=== PATIENT | female | born 1940 | race Caucasian/White ===

== ENCOUNTER 2016-09-20 12:42 | Emergency (ER) | payer MEDICARE ==
[2016-09-20 13:23] VITALS: BP 145/63
--- NOTE | 2016-09-20 15:06 | UC ---
Skin Complaint HPI - HPI Summary HPI Summary: ITCHY BUMPS SPREADING ON BOTH LEGS AND NOW SPREADING TO RIGHT HAND AND WRIST OVER LAST THREE DAYS. NO TICK BITES. NO NEW EXPOSURE TO DETERGENTS OR HOUSEHOLD PRODUCTS. NO FEVER. NO WEAKNESS. NO LYMPHNODE ENLARGEMENT OR WEIGHT LOSS. - History of Current Complaint Chief Complaint: UCSkin Time Seen by Provider: 09/20/16 14:02 Stated Complaint: SKIN COMPLAINT Hx Obtained From: Patient Hx Last Menstrual Period: n/a Onset/Duration: Gradual Onset, Lasting Days, Still Present Skin Exposure Onset/Duration: Days Ago Onset Severity: Mild Current Severity: Mild Pain Intensity: 0 Pain Scale Used: 0-10 Numeric Location: Diffuse Character: Pruritus, Redness, Raised Aggravating: Nothing Alleviating: Nothing Associated Signs & Symptoms: Positive: Rash. Negative: Fever, Chills, Drainage , Tenderness, Red Streaks Related History: Possible Reaction to: Insect - Allergy/Home Medications Allergies/Adverse Reactions: Allergies Allergy/AdvReac Type Severity Reaction Status Date / Time environmental Allergy Eyes Uncoded 09/20/16 13:23 Itchy/Swollen/Red/Watery Review of Systems Constitutional: Negative Skin: Rash Eyes: Negative ENT: Negative Respiratory: Negative Cardiovascular: Negative Gastrointestinal: Negative Genitourinary: Negative Motor: Negative Neurovascular: Negative Musculoskeletal: Negative Neurological: Negative Psychological: Negative All Other Systems Reviewed And Are Negative: Yes PMH/Surg Hx/FS Hx/Imm Hx Previously Healthy: Yes Endocrine History Of: Reports: Diabetes - diet controled Cardiovascular History Of: Reports: Hypertension - on meds - Surgical History Surgical History: Yes Surgery Procedure, Year, and Place: bilat cataracts - Family History Known Family History: Positive: Respiratory Disease Negative: Cardiac Disease, Hypertension - Social History Occupation: Retired Lives: With Family Alcohol Use: Occasionally Alcohol Amount: one wine Substance Use Type: None Smoking Status (MU): Former Smoker Amount Used/How Often: pack a day When Did the Patient Quit Smoking/Using Tobacco: 2002 - Immunization History Most Recent Influenza Vaccination: [id number] Physical Exam Triage Information Reviewed: Yes Appearance: Well-Appearing, No Pain Distress, Well-Nourished Vital Signs: Initial Vital Signs Temp 97.7 F 09/20/16 13:19 Pulse 61 09/20/16 13:19 Resp 17 09/20/16 13:19 BP 145/63 09/20/16 13:19 Pulse Ox 96 09/20/16 13:19 Vital Signs Reviewed: Yes Eye Exam: Normal ENT Exam: Normal ENT: Positive: Normal ENT inspection, Hearing grossly normal, TMs normal Dental Exam: Normal Neck exam: Normal Neck: Positive: Supple, Nontender, No Lymphadenopathy Respiratory Exam: Normal Respiratory: Positive: Chest non-tender, Lungs clear, Normal breath sounds, No respiratory distress Cardiovascular Exam: Normal Cardiovascular: Positive: RRR, No Murmur, Pulses Normal Abdominal Exam: Normal Abdomen Description: Positive: Nontender, No Organomegaly Musculoskeletal Exam: Normal Neurological Exam: Normal Psychological Exam: Normal Skin: Positive: rashes - Diffuse small, erythematous, nondescript papuleS, ON BILATERAL LEGS AND DEVELOPING ON RIGHT HAND AND WRIST Course/Dx - Differential Diagnoses - Skin Complaint Differential Diagnoses: Cellulitis, Contact Dermatitis, Drug Rash, Eczema, Impetigo, Scabies, Tick Born Illness, Tinea, Viral Exanthem - Diagnoses Provider Diagnoses: SCABIES Discharge - Discharge Plan Condition: Stable Disposition: HOME Prescriptions: Permethrin 5% CREAM* 1 applic TOPICAL SEE INSTRUCTIONS #1 tube Patient Education Materials: Scabies (ED) Referrals: Kendra Coats MD [Primary Care Provider] - Gildardo LEONARDO,Jesús Braga [Medical Doctor] -
== END 2016-09-20 14:44 | disposition home or self-care (01) ==
LOC: UCCORT 12:42
DX: B86 Scabies (principal); I10 Essential (primary) hypertension; E11.9 Type 2 diabetes mellitus without complications; Z98.42 Cataract extraction status, left eye; Z98.41 Cataract extraction status, right eye; Z87.891 Personal history of nicotine dependence
CPT/HCPCS: 99212; G0463